=== PATIENT | female | born 2000 | race Hispanic/Latino ===

== ENCOUNTER 2019-11-05 14:26 | Emergency (ER) | payer BC, OTHER | END 2019-11-05 15:36 | disposition home or self-care (01) | LOC: EDH 14:26 | DX: H72.93 Unspecified perforation of tympanic membrane, bilateral (principal); H66.92 Otitis media, unspecified, left ear; Z88.1 Allergy status to other antibiotic agents; Z98.890 Other specified postprocedural states ==